=== PATIENT | female | born 1960 | race Caucasian/White ===

== ENCOUNTER 2019-09-08 08:04 | Emergency (ER) | payer OTHER ==
[2019-09-08 08:52] LABS: ABSOLUTE BASOPHILS # (AUTO) 0.1 10^3/uL (0.0-0.2); ABSOLUTE EOSINOPHILS # (AUTO) 0.1 10^3/uL (0.0-0.6); ABSOLUTE MONOCYTES (AUTO) 0.8 10^3/uL (0.1-1.4); ABSOLUTE NEUT (AUTO) 7.5 10^3/uL (1.7-8.2); BASOPHILS % (AUTO) 0.9 % (0-2); EOSINOPHILS % (AUTO) 1.1 % (0-6); HEMATOCRIT 42.9 % (36.0-47.0); HEMOGLOBIN 14.8 g/dL (12.0-15.5); LYMPHOCYTES % (AUTO) 19.1 % (13-45); MEAN CORPUSCULAR HEMOGLOBIN 30.4 pg (27.0-33.4); MEAN CORPUSCULAR HGB CONC 34.4 g/dL (32.0-36.0); MEAN CORPUSCULAR VOLUME 88 fl (80-97); MONOCYTES % (AUTO) 7.2 % (3-13); PLATELET COUNT 142 10^3/uL (150-450); RED BLOOD COUNT 4.86 10^6/uL (3.72-5.28); RED CELL DISTRIBUTION WIDTH 13.5 % (11.5-14.0); SEGMENTED NEUTROPHILS % (AUTO) 71.7 % (42-78); TOTAL CELLS COUNTED % (AUTO) 100 %; WHITE BLOOD COUNT 10.5 10^3/uL (4.0-10.5)
[2019-09-08 09:00] LABS: ALBUMIN 3.9 g/dL (3.5-5.0); ALKALINE PHOSPHATASE 91 U/L (38-126); ANION GAP 6 (5-19); ASPARTATE AMINO TRANSFERASE 17 U/L (14-36); BILIRUBIN,TOTAL 0.3 mg/dL (0.2-1.3); BLOOD UREA NITROGEN 9 mg/dL (7-20); CALCIUM 8.9 mg/dL (8.4-10.2); CARBON DIOXIDE 25 mmol/L (22-30); CHLORIDE 104 mmol/L (98-107); GLUCOSE 358 mg/dL (75-110)
[2019-09-08 09:03] LABS: INTERNATIONAL RATION (INR) 1.05; PROTHROMBIN TIME 13.8 SEC (11.4-15.4)
[2019-09-08 09:04] LABS: PARTIAL THROMBOPLASTIN TIME 30.8 SEC (23.5-35.8)
--- NOTE | 2019-09-08 09:09 | RADIOLOGY REPORT (SQ) ---
EXAM DESCRIPTION: CT HEAD WITHOUT IMAGES COMPLETED DATE/TIME: 09/08/2019 8:56 am REASON FOR STUDY: rightr sided weakness, unknown last well time COMPARISON: None. TECHNIQUE: Axial images acquired through the brain without intravenous contrast. Images reviewed wi th bone, brain and subdural windows. Additional sagittal and coronal reconstructions were generated. Images stored on PACS. All CT scanners at this facility use dose modulation, iterative reconstruction, and/or weight based d osing when appropriate to reduce radiation dose to as low as reasonably achievable (ALARA). [facility]: Dose Right [facility]: CareDose [facility]: Dose Right [facility]: Teradose 4D [facility]: [employer] RADIATION DOSE: CT Rad equipment meets quality standard of care and radiation dose reduction techniq ues were employed. CTDIvol: 53.2 mGy. DLP: 964 mGy-cm. mGy. LIMITATIONS: None. FINDINGS: VENTRICLES: Prominent. CEREBRUM: No masses. No hemorrhage. No midline shift. Areas of low density in the white matter mos t likely due to chronic micro-vascular ischemic change. No evidence for acute infarction. CEREBELLUM: No masses. No hemorrhage. No alteration of density. No evidence for acute infarction. EXTRAAXIAL SPACES: Mild age-related involutional change. No fluid collections. No masses. ORBITS AND GLOBE: No intra- or extraconal masses. Normal contour of globe without masses. CALVARIUM: No fracture. PARANASAL SINUSES: No fluid or mucosal thickening. SOFT TISSUES: No mass or hematoma. OTHER: No other significant finding. IMPRESSION: MILD CHRONIC CHANGES OF ATROPHY AND MICROVASCULAR ISCHEMIA. NO ACUTE PROCESS. EVIDENCE OF ACUTE STROKE: NO. TECHNICAL DOCUMENTATION: JOB ID: [id number] Quality ID # 436: Final reports with documentation of one or more dose reduction techniques (e.g., Au tomated exposure control, adjustment of the mA and/or kV according to patient size, use of iterative reconstruction technique) 2010 [employer] All Rights Reserved Reading location - IP/workstation name: [email or web address]
--- NOTE | 2019-09-08 09:20 | RADIOLOGY REPORT (SQ) ---
EXAM DESCRIPTION: CHEST SINGLE VIEW IMAGES COMPLETED DATE/TIME: 09/08/2019 9:03 am REASON FOR STUDY: htn/cva COMPARISON: None. EXAM PARAMETERS: NUMBER OF VIEWS: One view. TECHNIQUE: Single frontal radiographic view of the chest acquired. RADIATION DOSE: NA LIMITATIONS: None. FINDINGS: LUNGS AND PLEURA: No opacities, masses or pneumothorax. No pleural effusion. MEDIASTINUM AND HILAR STRUCTURES: No masses. Contour normal. HEART AND VASCULAR STRUCTURES: Heart normal in size. Normal vasculature. BONES: No acute findings. HARDWARE: None in the chest. OTHER: No other significant finding. IMPRESSION: NO ACUTE RADIOGRAPHIC FINDING IN THE CHEST. TECHNICAL DOCUMENTATION: JOB ID: [id number] 2010 [employer]- All Rights Reserved Reading location - IP/workstation name: [email or web address]
[2019-09-08 09:22] LABS: NT PRO BNP 203 pg/mL (<125)
[2019-09-08 09:24] LABS: TROPONIN I < 0.012 ng/mL
[2019-09-08] MEDS ORDERED: NORMAL SALINE 500 ML IV ONE (09:24)
--- NOTE | 2019-09-08 11:18 | EKG REPORT ---
SEVERITY:- ABNORMAL ECG - SINUS RHYTHM PROBABLE LEFT ATRIAL ABNORMALITY PROBABLE INFERIOR INFARCT, OLD : Confirmed by: Anita Castaneda 08-Sep-2019 11:17:18
--- NOTE | 2019-09-08 11:36 | RADIOLOGY REPORT (SQ) ---
EXAM DESCRIPTION: CTA HEAD; CTA NECK IMAGES COMPLETED DATE/TIME: 09/08/2019 11:22 am REASON FOR STUDY: cva COMPARISON: Noncontrast CT head from earlier. TECHNIQUE: Axial dynamic scanning technique with dynamic contrast enhancement through the extra-aircraft de icer installer nial carotid and vertebral arteries. Multiplanar reconstruction. 3-D MIPS and Volume-rendered imag es acquired at the workstation and saved to PACS. Images are reviewed in soft tissue, bone, lung w indows. Axial dynamic scanning technique with dynamic contrast enhancement through the cerebral arteries. M ultiplanar reconstruction. 3-D MIPS and Volume-rendered images acquired at the workstation and save d to PACS. Images are reviewed in brain, subdural, soft tissue, bone, lung windows. All CT scanners at this facility use dose modulation, iterative reconstruction, and/or weight based d osing when appropriate to reduce radiation dose to as low as reasonably achievable (ALARA). [facility]: Dose Right [facility]: CareDose [facility]: Dose Right [facility]: Teradose 4D [facility]: [employer] RENAL FUNCTION: GFR > 60. LIMITATIONS: None. FINDINGS: CAROTIDS AORTIC ARCH: Normal three-vessel origin. Bilateral subclavian arteries are patent. No dissection. RIGHT CAROTIDS: Aberrent course with considerable medial deviation of the distal common as well as th e proximal internal carotid with tortuosity. No stenosis or significant plaque or dissection, howeve r. RIGHT VERTEBRAL: Patent. No dissection. LEFT CAROTIDS: Aberrent course with considerable medial deviation of the common as well as proximal i nternal carotid with tortuosity. No stenosis or significant plaque or dissection, however. LEFT VERTEBRAL: Patent. No dissection. OTHER: Mild scarring suspected in the lung apices. Mild nodular thyroid. No gross neck mass. No bu lky adenopathy. No bone lesions. 3-D reconstructions confirm findings. CTA HEAD CEREBRAL ARTERIES: Anterior, middle, posterior cerebral arteries are patent bilaterally. No evidenc e of gross stenosis or occlusion. No evidence of aneurysm. DISTAL VERTEBRAL AND BASILAR ARTERIES: Patent without suggestion of stenosis or aneurysm. BRAIN: No enhancing lesions detected. OTHER: No other finding. 3D reconstructions confirm findings. IMPRESSION: 1. Normal CTA of the carotids without dissection or stenosis. Findings as above. 2. Normal CTA of the [place]. COMMENT: Quality ID #[id number]: Measurements of distal internal carotid diameter were used as the denomina tor for stenosis measurement. TECHNICAL DOCUMENTATION: JOB ID: [id number] Quality ID # [id number]: Final reports with documentation of one or more dose reduction techniques (e.g., Au tomated exposure control, adjustment of the mA and/or kV according to patient size, use of iterative reconstruction technique) 2010 [employer]- All Rights Reserved Reading location - IP/workstation name: [email or web address]
--- NOTE | 2019-09-08 11:36 | RADIOLOGY REPORT (SQ) ---
EXAM DESCRIPTION: CTA HEAD; CTA NECK IMAGES COMPLETED DATE/TIME: 09/08/2019 11:22 am REASON FOR STUDY: cva COMPARISON: Noncontrast CT head from earlier. TECHNIQUE: Axial dynamic scanning technique with dynamic contrast enhancement through the extra-crane service technician nial carotid and vertebral arteries. Multiplanar reconstruction. 3-D MIPS and Volume-rendered imag es acquired at the workstation and saved to PACS. Images are reviewed in soft tissue, bone, lung w indows. Axial dynamic scanning technique with dynamic contrast enhancement through the cerebral arteries. M ultiplanar reconstruction. 3-D MIPS and Volume-rendered images acquired at the workstation and save d to PACS. Images are reviewed in brain, subdural, soft tissue, bone, lung windows. All CT scanners at this facility use dose modulation, iterative reconstruction, and/or weight based d osing when appropriate to reduce radiation dose to as low as reasonably achievable (ALARA). [facility]: Dose Right [facility]: CareDose [facility]: Dose Right [facility]: Teradose 4D [facility]: [employer] RENAL FUNCTION: GFR > 60. LIMITATIONS: None. FINDINGS: CAROTIDS AORTIC ARCH: Normal three-vessel origin. Bilateral subclavian arteries are patent. No dissection. RIGHT CAROTIDS: Aberrent course with considerable medial deviation of the distal common as well as th e proximal internal carotid with tortuosity. No stenosis or significant plaque or dissection, howeve r. RIGHT VERTEBRAL: Patent. No dissection. LEFT CAROTIDS: Aberrent course with considerable medial deviation of the common as well as proximal i nternal carotid with tortuosity. No stenosis or significant plaque or dissection, however. LEFT VERTEBRAL: Patent. No dissection. OTHER: Mild scarring suspected in the lung apices. Mild nodular thyroid. No gross neck mass. No bu lky adenopathy. No bone lesions. 3-D reconstructions confirm findings. CTA HEAD CEREBRAL ARTERIES: Anterior, middle, posterior cerebral arteries are patent bilaterally. No evidenc e of gross stenosis or occlusion. No evidence of aneurysm. DISTAL VERTEBRAL AND BASILAR ARTERIES: Patent without suggestion of stenosis or aneurysm. BRAIN: No enhancing lesions detected. OTHER: No other finding. 3D reconstructions confirm findings. IMPRESSION: 1. Normal CTA of the carotids without dissection or stenosis. Findings as above. 2. Normal CTA of the [place]. COMMENT: Quality ID #195: Measurements of distal internal carotid diameter were used as the denomina tor for stenosis measurement. TECHNICAL DOCUMENTATION: JOB ID: [id number] Quality ID # 436: Final reports with documentation of one or more dose reduction techniques (e.g., Au tomated exposure control, adjustment of the mA and/or kV according to patient size, use of iterative reconstruction technique) 2010 [employer]- All Rights Reserved Reading location - IP/workstation name: [email or web address]
[2019-09-08 11:42] LABS: APPEARANCE,URINE CLEAR; BILIRUBIN,URINE NEGATIVE (NEGATIVE); COLOR,URINE STRAW; GLUCOSE, URINE >=500 mg/dL (NEGATIVE); KETONES,URINE NEGATIVE (NEGATIVE); LEUKOCYTE ESTERASE,URINE TRACE (NEGATIVE); NITRITE,URINE NEGATIVE (NEGATIVE); PROTEIN,URINE NEGATIVE (NEGATIVE); UROBILINOGEN,URINE NEGATIVE mg/dL (<2.0)
[2019-09-08] MEDS ORDERED: ASPIRIN 81 MG TABLET, CHEWABLE PO ONE (12:22)
--- NOTE | 2019-09-08 12:38 | ER Document Report ---
Entered by TACOS POWELL SCRIBE 09/08/19 0836 Acting as scribe for:WILD PATINO MD ED General - General Chief Complaint: Numbness Stated Complaint: TINGLING IN ARMS Information source: Patient Notes: This 58-year-old right-handed female presents to the emergency department complaining of weakness of the right side extremities that began this morning at an unknown specific time. Patient states that she went to sleep at her normal bedtime at 0030 feeling at baseline. Patient explains that she woke up around 0430 to use the bathroom, which is usual for her daily routine. Patient said that when she woke up, she noticed that her right leg was "asleep". Patient describes that her sensation was still intact, she just felt weaker and like she was moving slower than usual. Patient said that she got up and took a longer time to walk to the bathroom than usual due to her right leg weakness. Patient said that she noticed that her right arm was having similar symptoms. Patient said that she has "to think hard about moving" her right extremities. Patient said that after using the bathroom, she went back to sleep. Patient woke up at 0600 and still felt right-sided weakness. Patient reports chronic nasal drainage due to allergies. Patient denies nausea, chest pain, dizziness, blurred vision, double vision, speech impairment, headache and difficulty swallowing. Patient states that she feels mild relief from her symptoms of weakness at this time. Patient mentions that she has not seen a physician in years and takes an aspirin every day with no other medications. - Related Data Allergies/Adverse Reactions: amoxicillin [From Augmentin] Allergy (Verified 09/08/19 08:57) clavulanic acid [From Augmentin] Allergy (Verified 09/08/19 08:57) codeine Allergy (Verified 09/08/19 08:17) Sulfa (Sulfonamide Antibiotics) Allergy (Verified 09/08/19 08:17) Past Medical History - General Information source: Patient - Social History Smoking Status: Current Every Day Smoker Cigarette use (# per day): Yes Chew tobacco use (# tins/day): No Frequency of alcohol use: Occasional Drug Abuse: None Lives with: Family Family History: Reviewed & Not Pertinent Patient has homicidal ideation: No - Past Medical History Cardiac Medical History: Reports: Hx Hypertension Endocrine Medical History: Reports: Hx Diabetes Mellitus Type 2 Surgical Hx: Negative Review of Systems - Review of Systems Constitutional: No symptoms reported EENT: See HPI, Sinus discharge. denies: Blurred vision, Double vision, Di fficulty swallowing Cardiovascular: See HPI. denies: Chest pain, Dizziness Respiratory: No symptoms reported Gastrointestinal: See HPI. denies: Nausea Genitourinary: No symptoms reported Female Genitourinary: No symptoms reported Musculoskeletal: No symptoms reported Skin: No symptoms reported Hematologic/Lymphatic: No symptoms reported Neurological/Psychological: See HPI, Sensory change, Weakness. denies: Headaches, Speech impairment -: Yes All other systems reviewed and negative Physical Exam - Vital signs Vitals: Temp Pulse Resp BP Pulse Ox 98.0 F 103 H 20 173/90 H 93 09/08/19 08:09 09/08/19 08:09 09/08/19 08:09 09/08/19 08:09 09/08/19 08:09 - Notes Notes: Physical Exam: General: Alert, appears well. HEENT: Normocephalic. Atraumatic. PERRL. Extraocular movements intact. Oropharynx clear. Neck: Supple. Non-tender. Respiratory: No respiratory distress. Clear and equal breath sounds bilaterally. Cardiovascular: Regular rate and rhythm. Abdominal: Normal Inspection. Non-tender. No distension. Normal Bowel Sounds. Back: No gross abnormalities. Extremities: Moves all four extremities. General weakness that is right-sided. Upper extremities: Normal ROM. Lower extremities: No edema. Normal ROM. Neurological: Normal cognition. AAOx4. Normal speech. 4/5 gun stocker strength. 4/5 motor strength in LE. Psychological: Normal affect. Normal Mood. Skin: Warm. Dry. Normal color. - Neurological Cognition: Normal Speech: Normal Cranial nerves: Normal Cerebellar coordination: Normal Motor strength normal: RUE - 4/5, RLE - 4/5 Sensory: Normal Course - Re-evaluation Re-evalutation: 09/08/19 12:25 Patient resting comfortably not showing any signs of distress at this time patient has completely resolved her right-sided weakness of arm and leg gun stocker strength is 5 out of 5 and lower extremity motor is 5 out of 5 on the right as well. Patient's blood pressure improved to systolic of 158 and patient work-up to date has been negative for any bleed mass tumor embolus or obstruction seen. Plan is to place patient on medications for diabetes mellitus type 2 increased cholesterol, and hypertensive medications. Patient refuses to be admitted to the hospital states that she must go home. Patient was explained that her work- up still is incomplete and that she needs to have echocardiograms and other studies done. Patient reports that she is going to be following up with a primary care physician that she has located in [facility] and she has an appointment on October 07 patient states that she will try to get her appointment time with her primary care physician sooner than October. - Vital Signs Vital signs: Temp Pulse Resp BP Pulse Ox 98.0 F 96 24 H 158/72 H 94 09/08/19 08:17 09/08/19 11:04 09/08/19 12:01 09/08/19 12:01 09/08/19 12:01 - Laboratory Result Diagrams: 09/08/19 08:13 09/08/19 08:13 Laboratory results interpreted by me: 09/08/19 09/08/19 09/08/19 08:13 08:13 08:13 Plt Count 142 L Sodium 135.2 L Glucose 358 H POC Glucose NT-Pro-B Natriuret Pep 203 H Urine Glucose (UA) Ur Leukocyte Esterase 09/08/19 09/08/19 10:16 11:23 Plt Count Sodium Glucose POC Glucose 300 H NT-Pro-B Natriuret Pep Urine Glucose (UA) >=500 H Ur Leukocyte Esterase TRACE H Laboratory results within normal limits except for a sugar of 300. Patient is not on any medications for diabetes. - Diagnostic Test Radiology reviewed: Image reviewed, Reports reviewed Radiology results interpreted by me: 09/08/19 12:24 Chest x-ray shows no acute process CT of head noncontrast, shows chronic micro-ischemic changes and atrophy but no acute stroke. Otherwise negative. CT a of head and neck disclose no aneurysms no evidence for blockages in head or neck and [place]. 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 Discharge - Discharge Clinical Impression: Hypertension, Hyperglycemia due to type 2 diabetes mellitus Clinical Impression: (Ruled Out): Type 2 diabetes mellitus with hyperglycemia, with long-term current use of insulin Condition: Good Disposition: HOME, SELF-CARE Additional Instructions: Transient Ischemic Attack You have been diagnosed as having a transient ischemic attack (TIA). This is caused when an artery to the brain has been temporarily blocked. It can result in visual changes, difficulty with speech, and weakness or numbness -- usually limited to one side of the body. TIA symptoms usually resolve within an hour, but a TIA is serious, as it may be a warning sign of an impending stroke. To prevent further episodes, you may be placed on medication to reduce the possibility that your platelets will aggregate and form blood clots in the arteries that supply the brain. Usually, this includes aspirin and sometimes other platelet inhibitors. Further evaluation is often necessary to make an exact diagnosis as to where these blood clots are originating, and if anything else needs to be done to correct the problem. Call the physician or go to the emergency room if episodes occur with increasing frequency. If symptoms occur that don't go away within a few minutes, call 911. We recommend that you continue taking 1 baby aspirin on a daily basis as you are doing. In addition we are adding blood pressure medication lisinopril and type II diabetic medications metformin. Hyperglycemia (High Blood Sugar) You have an abnormally high blood sugar. Not all high blood sugar requires long-term treatment. High blood sugar can be due to medications, , or the stress of illness. (These cases are "borderline diabetes.") If the doctor feels your high blood sugar might resolve with time, you may not require treatment now. You will be scheduled for further evaluation. It's very important that you follow through, to see if the blood sugar returns to normal levels. Uncontrolled high blood sugar leads to early heart disease, strokes, nerve damage, eye damage, and kidney damage. Call the physician if there is faintness, excess sleepiness, or very rapid breathing. Prescriptions: Atorvastatin Calcium [Lipitor 40 mg Tablet] 40 mg PO QHS #30 tablet Metformin HCl [Glucophage 500 mg Tablet] 500 mg PO BIDACBS 30 Days #60 tablet Lisinopril/Hydrochlorothiazide [Lisinopril-Hctz 20-12.5 mg Tab] 1 each PO DAILY 30 Days #30 tablet Forms: Elevated Blood Pressure I personally performed the services described in the documentation, reviewed and edited the documentation which was dictated to the scribe in my presence, and it accurately records my words and actions.
[2019-09-08 13:11] VITALS: BP 153/89
== END 2019-09-08 13:13 | disposition home or self-care (01) ==
LOC: ER 08:04
DX: E11.65 Type 2 diabetes mellitus with hyperglycemia (principal); R20.0 Anesthesia of skin; R53.1 Weakness; F17.210 Nicotine dependence, cigarettes, uncomplicated; I10 Essential (primary) hypertension
CPT/HCPCS: 93005; 99285; 96360; 96361; 36415; 82962; 82550; 85025; 85610; 85730; 80053; 81001; 84484; 83880; 71045; 70450; 70496; 70498; 93010; J7040